=== PATIENT | male | born 2000 | race Caucasian/White ===

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

== ENCOUNTER 2023-01-30 18:40 | Outpatient (CLI) | payer MEDICAID ==
--- NOTE | 2023-01-31 19:36 | CT Report ---
PROCEDURE: SINUS SCREENING WO INDICATIONS: CHRONIC PANSINUSITIS TECHNIQUE: Noncontrast 3.0 mm axial images acquired from the frontal sinuses to the mid-sella, with coronal and sagittal reformats. For radiation dose reduction, the following was used: automated exposure control , adjustment of mA and/or kV according to patient size. COMPARISON: None. FINDINGS: Image quality: Excellent. Sinuses: Minimal maxillary, frontal, ethmoid and sphenoid sinus mucosal thickening are present. No fl uid levels. No mucous retention cysts versus polyps are present. Ostiomeatal Complexes: Ostiomeatal complexes are patent with minimal mucosal thickening. Miscellaneous: Visualized intra-orbital contents are normal. There is aeration of the vertical conc lucero. No paradoxical turbinates. Mild hypertrophy of the inferior turbinates bilaterally.. No nasal septal deviation. IMPRESSION: Scattered areas of minimal mucosal thickening without fluid levels or mucus retention cysts/polyps. Reviewed by: Rhonda Fragoso MD on 01/31/2023 7:35 PM PDT Approved by: Rhonda Fragoso MD on 01/31/2023 7:35 PM PDT Station ID: [id number]
== END 2023-01-30 18:41 | disposition home or self-care (01) ==
LOC: DI 18:40
PROVIDERS: ATTEND Otolaryngology
DX: J32.4 Chronic pansinusitis (principal)